=== PATIENT | female | born 1970 | race Caucasian/White ===

== ENCOUNTER 2016-09-06 19:55 | Emergency (ER) | payer OTHER ==
[~2016-09-06] VITALS: Ht 167.6 cm; Wt 87.5 kg
[2016-09-06 19:59] VITALS: Ht 167.6 cm; Wt 87.5 kg
--- NOTE | 2016-09-06 20:29 | ERD ---
ER Documentation Chief Complaint Date/Time DATE: 09/06/16 TIME: 20:26 Chief Complaint left middle finger injury, got finger smashed HPI 45-year-old female presents here in emergency department for complaints of her left middle finger pain and swelling blood blister after smashing it in a drawer 2 days ago. Patient tried to drain it yesterday with friends, was able to drain out some blood, today it became more red and swollen. Patient is goes the pain as throbbing pain, 6/10 scale, is worse upon touching the area. Patient denies any numbness or tingling. Patient denies any fever or chills. ROS All systems reviewed and are negative except as per history of present illness. Medications Home Meds Reported Medications [none] Unknown Strength No Conflict Check 09/06/16 Allergies Allergies: Coded Allergies: No Known Allergy (Unverified , 09/06/16) PMhx/Soc Medical and Surgical Hx: pt denies Medical Hx, pt denies Surgical Hx History of Surgery: No Anesthesia Reaction: No Hx Neurological Disorder: No Hx Respiratory Disorders: No Hx Cardiac Disorders: No Hx Psychiatric Problems: No Hx Miscellaneous Medical Probl: Yes (THYROID) Hx Alcohol Use: No Hx Substance Use: No Hx Tobacco Use: No Smoking Status: Never smoker FmHx Family History: No coronary disease, No diabetes, No other Physical Exam Vitals Vital Signs Date Time Temp Pulse Resp B/P Pulse Ox O2 Delivery O2 Flow Rate FiO2 09/06/16 19:59 98.2 114 18 132/80 97 Physical Exam GENERAL: The patient is well developed and appropriate for usual state of health, in no apparent distress. CHEST: Clear to auscultation bilaterally. There are no rales, wheezes or rhonchi. HEART: Regular rate and rhythm. No murmurs, clicks, rubs or gallops. No S3 or S4. ABDOMEN: Soft, nontender and nondistended. Good bowel sounds. No rebound or guarding. No gross peritonitis. No gross organomegaly or masses. No Marmolejo sign or McBurney point tenderness. BACK: No midline or flank tenderness. EXTREMITIES: Noted some ecchymosis in the surrounding the nailbed of the left middle finger, able to do full range of motion without any restriction. Equal pulses bilaterally. Full range of motion of other joints of the body. Grossly neurovascularly intact. NEURO: Alert and oriented. Cranial nerves 2-12 intact. Motor strength in all 4 extremities with 5/5 strength. Sensation grossly intact. Normal speech and gait. SKIN: There is no apparent rash or petechia. The skin is warm and dry. HEMATOLOGIC AND LYMPHATIC: There is no evidence of excessive bruising or lymphedema. No gross cervical, axillary, or inguinal lymphadenopathy. Results 24 hrs PROCEDURE: XR Finger. CLINICAL INDICATION: Trauma. Pain. TECHNIQUE: Three views of the left third finger are available for review. COMPARISON: None available FINDINGS: There is mild diffuse soft tissue swelling surrounding the third digit. There is a small submillimeter ossific density at the dorsal aspect of the distal interphalangeal joint seen on the lateral view only. No other potential fractures identified. Joint relationships are maintained. Bone mineralization is within normal limits. There are no radiopaque foreign bodies. IMPRESSION: Soft tissue swelling surrounding the third digit. Small possible avulsion fracture fragment dorsal aspect of the distal interphalangeal joint. No radiopaque foreign body. RPTAT: HMVK .Paulino Munoz MD, MD Date Time Electronically viewed and signed by .Paulino Munoz MD, on 09/06/2016 20:49 .K/ CC: KIMANI GODOY CASTING AGENT After receiving patients xray report, a finger metal splint was applied on the patients left middle finger. After application of the splint, patient has intact sensation and circulation on distal area of the affected joint. Patient does not complain of numbness or tingling after application of the splint. Patient tolerated procedure well. Procedures/MDM Medical Decision Making: Patient's pain is most likely consistent with a contusion with possible avulsion fracture of the distal interphalangeal joint. There is no suspicion for neurovascular compromise. Patient has intact sensation and circulation of the affected extremity. There is low suspicion for septic arthritis. Patient does not have any fever. Radiology exams of the affected area does not show any dislocation. Disposition: Home. Patient is given prescription for ibuprofen for pain, Keflex to Prevent infection, tramadol for severe pain. Patient was advised to elevate the affected area and apply ice on affected area. Patient was advised that if symptoms are worse, numbness, tingling, high fever, unable to move joint, worsening symptoms, to return to emergency department immediately. Otherwise, patient is advised to follow up with the primary care doctor in 5-7 days for reevaluation of symptoms. Departure Diagnosis: Primary Impression: Finger fracture Encounter type: initial encounter Finger: middle finger Fracture type: closed Phalanx: distal Fracture alignment: nondisplaced Laterality: left Qualified Code: S62.663A - Closed nondisplaced fracture of distal phalanx of left middle finger, initial encounter Condition: Stable Patient Instructions: Finger and Toe Fractures (Broken Finger or Toe) Additional Instructions: Patient is given prescription for ibuprofen for pain, Keflex to Prevent infection, tramadol for severe pain. Patient was advised to elevate the affected area and apply ice on affected area. Patient was advised that if symptoms are worse, numbness, tingling, high fever, unable to move joint, worsening symptoms, to return to emergency department immediately. Otherwise, patient is advised to follow up with the primary care doctor in 5-7 days for reevaluation of symptoms. KIMANI GODOY NP Sep 06, 2016 20:29
--- NOTE | 2016-09-06 20:49 | RADRPT ---
PROCEDURE: XR Finger. CLINICAL INDICATION: Trauma. Pain. TECHNIQUE: Three views of the left third finger are available for review. COMPARISON: None available FINDINGS: There is mild diffuse soft tissue swelling surrounding the third digit. There is a small submillime ter ossific density at the dorsal aspect of the distal interphalangeal joint seen on the lateral vie w only. No other potential fractures identified. Joint relationships are maintained. Bone mineral ization is within normal limits. There are no radiopaque foreign bodies. IMPRESSION: Soft tissue swelling surrounding the third digit. Small possible avulsion fracture fragment dorsal aspect of the distal interphalangeal joint. No radiopaque foreign body. RPTAT: HMVK .Paulino Munoz MD, Date Time Electronically viewed and signed by .Paulino Munoz MD, on 09/06/2016 20:49 .K/
[2016-09-06] MEDS ORDERED: TRAM50TA2 PO (21:33)
[2016-09-06] MEDS ORDERED: IBUP-1542 PO (21:33)
[2016-09-06] MEDS ORDERED: CEPH-443 PO (21:33)
[2016-09-06 21:52] VITALS: BP 128/80; PULSE 95; RESP 18; TEMP 98.2
== END 2016-09-06 21:33 | disposition home or self-care (01) ==
LOC: FTE 19:55
DX: S62.663A Nondisplaced fracture of distal phalanx of left middle finger, initial encounter for closed fracture (principal); W23.1XXA Caught, crushed, jammed, or pinched between stationary objects, initial encounter; Y92.9 Unspecified place or not applicable
CPT/HCPCS: 29130; 73140; Z7502

== ENCOUNTER 2016-11-09 10:46 | Emergency (ER) | payer OTHER ==
[~2016-11-09] VITALS: Ht 167.6 cm; Wt 86.5 kg
[~2016-11-09 10:46] MED LIST: CEPH-443 PO; IBUP-1542 PO; TRAM50TA2 PO
[2016-11-09 10:49] VITALS: Ht 167.6 cm; Wt 86.5 kg
[2016-11-09] MEDS ORDERED: KETOROLAC 15 MG INJ IM STA (11:29)
[2016-11-09] MEDS ORDERED: DEXAMETHASONE 10 MG/ML 1 ML INJ IM ONE (11:30)
--- NOTE | 2016-11-09 12:44 | RADRPT ---
PROCEDURE: Right humerus x-ray CLINICAL INDICATION: Trauma, injury TECHNIQUE: AP and lateral views of the humerus were obtained. COMPARISON: None FINDINGS: There is normal mineralization. No acute fracture or dislocation is seen. There is no significant soft tissue swelling. The visualized joints are normal. IMPRESSION: No definite abnormalities are identified. RPTAT:AAJJ Physician Karmen Date Time Electronically viewed and signed by Alon Brock Physician on 11/09/2016 12:44 GATO/
--- NOTE | 2016-11-09 12:46 | RADRPT ---
PROCEDURE: XR Right Elbow. CLINICAL INDICATION: Trauma, injury TECHNIQUE: AP, lateral and oblique views of the elbow performed. COMPARISON: None. FINDINGS: There is normal mineralization and alignment. No fracture or osseous lesion is identified. There is no significant joint space narrowing. The soft tissues are unremarkable. IMPRESSION: No definite abnormalities are identified. RPTAT:AAJJ Physician Karmen Date Time Electronically viewed and signed by Alon Brock Physician on 11/09/2016 12:45 /
--- NOTE | 2016-11-09 12:47 | RADRPT ---
PROCEDURE: XR Lumbar Spine. CLINICAL INDICATION: low back pain after fall TECHNIQUE: AP, lateral and cone-down lateral view of the lumbar spine were obtained. COMPARISON: No prior studies are available for comparison. FINDINGS: There is normal vertebral mineralization. No fracture or subluxation is seen. There is mild disc space narrowing at L5-S1. Small anterior osteophytes are seen at L3-4. The posterior elements are unremarkable. The soft tissues appear normal. IMPRESSION: 1. Small anterior osteophytes are seen at L3-4. 2. Mild disc space narrowing is seen at L5-S1. RPTAT:AAJJ Physician Karmen Date Time Electronically viewed and signed by Alon Brock Physician on 11/09/2016 12:47 GATO/
--- NOTE | 2016-11-09 12:48 | RADRPT ---
PROCEDURE: XR Forearm. CLINICAL INDICATION: R forearm pain TECHNIQUE: AP and lateral views of the right forearm were obtained. COMPARISON: No prior studies are available for comparison. FINDINGS: There is normal mineralization and alignment. No fracture or osseous lesion is identified. The soft tissues are unremarkable. IMPRESSION: No definite abnormalities are identified. RPTAT:AAJJ Alon Brock Physician Date Time Electronically viewed and signed by Alon Brock Physician on 11/09/2016 12:48 /
--- NOTE | 2016-11-09 12:49 | RADRPT ---
PROCEDURE: XR right Wrist. CLINICAL INDICATION: Pain, injury TECHNIQUE: AP, lateral and oblique views of the wrist were performed. COMPARISON: No prior studies are available for comparison. FINDINGS: No acute fracture dislocation is identified. The bones appear well mineralized. The joint spaces are well maintained. The soft tissues are normal. IMPRESSION: No definite abnormalities are identified. RPTAT:AAJJ Physician Karmen Date Time Electronically viewed and signed by Alon Brock Physician on 11/09/2016 12:49 GATO/
[2016-11-09] MEDS ORDERED: NAPR-260 PO (13:15)
[2016-11-09] MEDS ORDERED: PRED20TA PO (13:15)
--- NOTE | 2016-11-09 20:10 | ERD ---
ER Documentation Chief Complaint Date/Time DATE: 11/09/16 TIME: 20:03 Chief Complaint lower back pain & righ elbow pain, fall 2.5 wks ago HPI Patient is a 45-year-old female presenting to the emergency department with complaints of bilateral lumbar pain and right elbow pain after fall approximately 2.5 weeks ago. Additionally the patient reports right-sided wrist drop for the past 2 days. The patient states she has narcolepsy and she fell backwards onto her back and right elbow causing injury 2.5 weeks ago. The patient has noticed a omission of the right elbow as well as difficulty moving her right wrist associated with numbness and tingling in her forearm and right hand the past 2 days. Symptoms are moderate, symptoms are constant. She denies fevers, chills, or other symptoms. ROS All systems reviewed and are negative except as per history of present illness. Medications Home Meds Active Scripts Naproxen* (Naprosyn*) 500 Mg Tablet, 500 MG PO BID Y for PAIN AND/OR INFLAMMATION, #30 TAB Prov:KATHIA WHITING PA-C 11/09/16 Prednisone* (Prednisone*) 20 Mg Tab, 40 MG PO DAILY for 5 Days, #10 TAB Prov:KATHIA WHITING PA-C 11/09/16 Tramadol HCl (Tramadol HCl) 50 Mg Tablet, 50 MG PO Q6 Y for SEVERE PAIN LEVEL 7- 10, #20 TAB Prov:KIMANI GODOY NP 09/06/16 Cephalexin* (Keflex*) 500 Mg Capsule, 500 MG PO QID for 10 Days, CAP Prov:KIMANI GODOY NP 09/06/16 Ibuprofen* (Motrin*) 600 Mg Tab, 600 MG PO Q6H Y for PAIN AND OR ELEVATED TEMP, #30 TAB Prov:KIMANI GODOY NP 09/06/16 Reported Medications [none] Unknown Strength No Conflict Check 09/06/16 Allergies Allergies: Coded Allergies: No Known Allergy (Unverified , 09/06/16) PMhx/Soc History of Surgery: No Anesthesia Reaction: No Hx Neurological Disorder: No Hx Respiratory Disorders: No Hx Cardiac Disorders: No Hx Psychiatric Problems: No Hx Miscellaneous Medical Probl: No Hx Alcohol Use: No Hx Substance Use: No Hx Tobacco Use: No Smoking Status: Never smoker Physical Exam Vitals Vital Signs Date Time Temp Pulse Resp B/P Pulse Ox O2 Delivery O2 Flow Rate FiO2 11/09/16 10:49 98.1 95 18 123/84 100 Physical Exam Const: Nontoxic, well-appearing female in no acute distress. Head: Atraumatic Eyes: Normal Conjunctiva ENT: Normal External Ears, Nose and Mouth. Skin: No petechiae or rashes Back: No midline or flank tenderness Ext: Appears to be inflammation of the bursa of the right elbow but no erythema, warmth, lymphatic streaking noted. There is right wrist drop noted to the right upper extremity. The patient is unable to flex the wrist secondary to weakness. She reports subjective decreased sensation of the lateral portion of the left forearm as well as the hand. Prescript strength of the right hand. Neur: Awake and alert Psych: Normal Mood and Affect Results 24 hrs Current Medications Medications (Trade) Dose Ordered Sig/Diego Route PRN Reason Start Time Stop Time Status Last Admin Dose Admin Ketorolac Tromethamine (Toradol) 15 mg ONCE STAT IM 11/09/16 11:29 11/09/16 11:32 DC 11/09/16 11:48 Dexamethasone (Decadron) 10 mg ONCE ONCE IM 11/09/16 11:30 11/09/16 11:32 DC 11/09/16 11:47 Procedures/MDM This patient is a 45-year-old female presenting to the emergency department with complaints of decreased strength of the right wrist. History and physical examination is consistent with a radial nerve palsy. I had the attending physician, Dr. Luke Lyles performed at this patient's case and he visited the patient and examined her bedside. He agreed with the diagnosis of radial nerve palsy. He advised follow-up with orthopedic physician within 24-48 hours. The patient was given copies of her x-ray results. She was given steroids in the department and a prescription for steroids and pain medication for home. Strict ER return precautions were discussed. Close follow-up with the primary care physician and orthopedic physician within 1-2 days was advised. PROCEDURE: XR Right Elbow. CLINICAL INDICATION: Trauma, injury TECHNIQUE: AP, lateral and oblique views of the elbow performed. COMPARISON: None. FINDINGS: There is normal mineralization and alignment. No fracture or osseous lesion is identified. There is no significant joint space narrowing. The soft tissues are unremarkable. IMPRESSION: No definite abnormalities are identified. RPTAT:AAJJ Alon Brock, Physician Date Time Electronically viewed and signed by Physician Karmen on 11/09/2016 12: 45 PROCEDURE: XR Forearm. CLINICAL INDICATION: R forearm pain TECHNIQUE: AP and lateral views of the right forearm were obtained. COMPARISON: No prior studies are available for comparison. FINDINGS: There is normal mineralization and alignment. No fracture or osseous lesion is identified. The soft tissues are unremarkable. IMPRESSION: No definite abnormalities are identified. RPTAT:AAJJ Alon Brock, Physician Date Time Electronically viewed and signed by Physician Karmen on 11/09/2016 12: 48 PROCEDURE: Right humerus x-ray CLINICAL INDICATION: Trauma, injury TECHNIQUE: AP and lateral views of the humerus were obtained. COMPARISON: None FINDINGS: There is normal mineralization. No acute fracture or dislocation is seen. There is no significant soft tissue swelling. The visualized joints are normal. IMPRESSION: No definite abnormalities are identified. RPTAT:AAJJ Alno Brock Physician Date Time Electronically viewed and signed by Physician Karmen on 11/09/2016 12: 44 PROCEDURE: XR Lumbar Spine. CLINICAL INDICATION: low back pain after fall TECHNIQUE: AP, lateral and cone-down lateral view of the lumbar spine were obtained. COMPARISON: No prior studies are available for comparison. FINDINGS: There is normal vertebral mineralization. No fracture or subluxation is seen. There is mild disc space narrowing at L5-S1. Small anterior osteophytes are seen at L3-4. The posterior elements are unremarkable. The soft tissues appear normal. IMPRESSION: 1. Small anterior osteophytes are seen at L3-4. 2. Mild disc space narrowing is seen at L5-S1. RPTAT:AAJJ Alon Brock Physician Date Time Electronically viewed and signed by Physician Karmen on 11/09/2016 12: 47 PROCEDURE: XR right Wrist. CLINICAL INDICATION: Pain, injury TECHNIQUE: AP, lateral and oblique views of the wrist were performed. COMPARISON: No prior studies are available for comparison. FINDINGS: No acute fracture dislocation is identified. The bones appear well mineralized. The joint spaces are well maintained. The soft tissues are normal. IMPRESSION: No definite abnormalities are identified. RPTAT:AAJJ Physician Karmen Date Time Electronically viewed and signed by Physician Karmen on 11/09/2016 12: 49 The patient left the department before being placed in a Velcro wrist splint, so I called her and left a voicemail on her home telephone at approximately 2005 on 11-09-2016 to let her know she may come to the emergency department to be placed in 1. The patient's low back pain was consistent with a lumbar strain and this was supported through x-rays of the L-spine. I have low suspicion for cauda equina, epidural abscess, vertebral fracture, or other emergent conditions. The patient did not have loss of bowel or bladder function. Strict ER return precautions were discussed. The patient agreed with the discharge plan and diagnosis. Her questions and concerns were addressed. Departure Diagnosis: Primary Impression: Acute radial nerve palsy of right upper extremity Additional Impression: Lumbar strain Encounter type: initial encounter Qualified Code: S39.012A - Strain of lumbar region, initial encounter Condition: Fair Patient Instructions: Causes of Lumbar (Low Back) Pain, Radial Nerve Palsy Referrals: COMMUNITY CLINICS YOU HAVE RECEIVED A MEDICAL SCREENING EXAM AND THE RESULTS INDICATE THAT YOU DO NOT HAVE A CONDITION THAT REQUIRES URGENT TREATMENT IN THE EMERGENCY DEPARTMENT. FURTHER EVALUATION AND TREATMENT OF YOUR CONDITION CAN WAIT UNTIL YOU ARE SEEN IN YOUR DOCTORS OFFICE WITHIN THE NEXT 1-2 DAYS. IT IS YOUR RESPONSIBILITY TO MAKE AN APPOINTMENT FOR FOLOW-UP CARE. IF YOU HAVE A PRIMARY DOCTOR --you should call your primary doctor and schedule an appointment IF YOU DO NOT HAVE A PRIMARY DOCTOR YOU CAN CALL OUR PHYSICIAN REFERRAL HOTLINE AT IF YOU CAN NOT AFFORD TO SEE A PHYSICIAN YOU CAN CHOSE FROM THE FOLLOWING [facility] [id number] [facility] [address] [facility] [address] [facility] [address] [facility] [address] [facility]. [facility] [address] [facility]. [facility] Urgent Care 7 a.m.- 11 p.m. Every Day of the Week NO APPOINTMENT OR AUTHORIZATION NEEDED [facility] Hours: Mon-Fri 9:00 AM - 5:00 PM Additional Instructions: Follow up with your PCP within the next 1-3 days for a repeat evaluation. If you require a referral to a specialist, your Primary Care Provider may be able to provide this for you. In most patient cases, a referral is not required. If you have further questions regarding this matter, please ask your Primary Care Provider. Return the the emergency department immediately if symptoms worsen or change. If you have any questions regarding medications, ask your pharmacist or us before you leave. If any adverse reactions, occur while taking your medications, discontinue the treatment and return to the emergency department immediately. If any new or worsening symptoms, uncontrolled fevers, or other unexplained symptoms occur, return to the emergency department immediately. Take your medications as directed, and complete the entire course of treatment. KATHIA WHITING PA-C Nov 09, 2016 20:10
== END 2016-11-09 13:42 | disposition home or self-care (01) ==
LOC: FTE 10:46
DX: G56.31 Lesion of radial nerve, right upper limb (principal); S39.012A Strain of muscle, fascia and tendon of lower back, initial encounter; W18.39XA Other fall on same level, initial encounter; Y92.9 Unspecified place or not applicable
CPT/HCPCS: 72100; 73060; 73080; 73090; 73110; 96372; J1100; J1885; Z7502